=== PATIENT | female | born 1990 | race African-American/Black ===

== ENCOUNTER 2017-03-28 02:45 | Emergency (ER) | payer OTHER ==
[~2017-03-28] VITALS: Ht 175.3 cm; Wt 96.5 kg
[~2017-03-28 02:45] MED LIST: ABILIFY10 MG PO
[2017-03-28] MEDS ORDERED: TRAMADOL HCL50 MG PO (03:56)
[2017-03-28] MEDS ORDERED: PREDNISONE50 MG PO (03:56)
[2017-03-28 04:17] VITALS: BP 148/111
== END 2017-03-28 04:19 | disposition home or self-care (01) ==
LOC: EME 02:45
DX: M54.12 Radiculopathy, cervical region (principal); I10 Essential (primary) hypertension; Z87.891 Personal history of nicotine dependence
CPT/HCPCS: 99281; 99283

== ENCOUNTER 2017-11-26 13:22 | Emergency (ER) | payer OTHER ==
[~2017-11-26] VITALS: Ht 175.3 cm; Wt 97.5 kg
[~2017-11-26 13:22] MED LIST changes: +PREDNISONE50 MG PO; +TRAMADOL HCL50 MG PO
[2017-11-26 17:10] LABS: HEMATOCRIT 38.7 % (36.0-46.0); HEMOGLOBIN 13.8 G/DL (11.9-15.5); MCH 32.7 PG (29.0-34.0); MCHC 35.7 G/DL (30.0-36.0); MCV 91.7 FL (83-99); PLATELET COUNT 311 K/uL (156-360); RBC DIS.WIDTH-CV 12.4 % (11.8-14.6); RBC DIS.WIDTH-SD 41.4 % (39-53); RED BLOOD COUNT 4.22 M/uL (3.80-5.20); WHITE BLOOD COUNT 11.4 K/uL (4.1-10.2)
[2017-11-26 17:20] LABS: ALBUMIN 4.6 g/dL (3.2-4.8); CHLORIDE 107 mEq/L (99-109); POTASSIUM 4.3 mEq/L (3.7-5.4); SODIUM 138 mEq/L (136-147)
[2017-11-26 17:23] LABS: GLUCOSE 78 mg/dL (70-99); TOTAL PROTEIN 7.6 g/dL (6.4-8.3)
[2017-11-26 17:25] LABS: TOTAL BILIRUBIN 0.7 mg/dL (0.0-1.0)
[2017-11-26 17:26] LABS: ALKALINE PHOSPHATASE 54 IU/L (3-129); CREATININE 0.8 mg/dL (0.6-1.3); GFR ESTIMATE (CALCULATED) > 59 mL/min/
[2017-11-26 17:27] LABS: UREA NITROGEN (BUN) 11 mg/dL (9-23)
[2017-11-26 17:28] LABS: AST (GOT) 17 IU/L (2-34)
[2017-11-26 17:29] LABS: ALT (GPT) 14 IU/L (3-49)
[2017-11-26 18:06] LABS: TROP-I INTERPRETATION NEGATIVE; TROPONIN-I < 0.01 ng/mL (0.0-0.30)
[2017-11-26] MEDS ORDERED: MOTRIN800 MG PO (19:24)
[2017-11-26] MEDS ORDERED: FLEXERIL10 MG PO (19:24)
[2017-11-26 19:32] VITALS: BP 135/85
== END 2017-11-26 19:33 | disposition home or self-care (01) ==
LOC: EME 13:22
PROVIDERS: Nurse Practitioner Family
DX: R42 Dizziness and giddiness (principal); R20.0 Anesthesia of skin; R07.89 Other chest pain; Z87.891 Personal history of nicotine dependence
CPT/HCPCS: 80053; 84484; 85027; 93005; 99281; 99284; J1885